=== PATIENT | female | born 1975 ===

== ENCOUNTER → 2019-01-09 22:00 | Outpatient (REF) | payer OTHER, SELFPAY ==
[2019-01-09 23:34] LABS: Add Manual Diff / Slide Review NO; Basophils Absolute Auto 0 /uL (0-100); Basophils Percent Auto 0.9 % (0-2); Eosinophils Absolute Auto 200 /uL (0-450); Eosinophils Percent Auto 3.3 % (2-4); Hematocrit 38.9 % (36-46); Hemoglobin 12.8 g/dL (12.0-16.0); Lymphocytes Absolute Auto 1700 /uL (1100-4500); Lymphocytes Percent Auto 33.2 % (25-40); Mean Corpuscular HGB Conc 32.8 % (30-36); Mean Corpuscular Hemoglobin 28.9 PG (26-34); Monocytes Absolute Auto 400 /uL (0-900); Monocytes Percent Auto 8.7 % (3-14); Neutrophils Absolute Auto 2700 /uL (1500-7000); Neutrophils Percent Auto 53.9 % (50-75); Platelet Count 252 X10^3/uL (150-400); Red Blood Cell Count 4.42 X10^6/uL (4.0-5.2); Red Cell Distribution Width 13.3 % (11.6-14.8)
[2019-01-10 00:15] LABS: Alanine Aminotransferase 27 IU/L (9-52); Albumin 4.5 g/dL (3.5-5.0); Albumin Globulin Ratio 1.6 (1.0-2.8); Alkaline Phosphatase 58 U/L (38-126); Aspartate Aminotransferase 22 IU/L (14-36); BUN Creatinine Ratio 21.7 (6-22); Bilirubin Total 1.6 mg/dL (0.2-1.3); Blood Urea Nitrogen 13 mg/dL (7-17); Calcium 9.4 mg/dL (8.4-10.2); Carbon Dioxide 26 mmol/L (22-32); Chloride 103 mmol/L (98-107); Estimated Glomerular Filt Rate > 60.0 mL/min (>60); Ferritin 56.4 ng/mL (6.27-137); Globulin 2.9 g/dL (1.7-4.1); Glucose 83 mg/dL (70-100); HEMOLYSIS < 15 (0-50); Potassium 4.4 mmol/L (3.4-5.1); Sodium 138 mmol/L (137-145); Total Protein 7.4 g/dL (6.3-8.2)
[2019-01-10 00:31] LABS: Vitamin D 25 Hydroxy (D3) 26.7 ng/mL (30.0-100.0)
[2019-01-10 06:35] LABS: Free T3, Triiodothyronine Free 3.67 pg/mL (2.77-5.27); Free T4, Direct Thyroxine 1.16 ng/dL (0.78-2.19)
[2019-01-10 06:48] LABS: Thyroid Stimulating Hormone 1.35 uIU/mL (0.47-4.68)
[2019-01-13 14:21] LABS: Homocysteine 11.1 umol/L (< 10.4)
[2019-01-14 15:30] LABS: Triiodothyronine T3 Reverse 17 ng/dL (8-25)
== END ==
LOC: LAB 22:00
PROVIDERS: Visit Provider Acupuncturist
DX: R53.83 Other fatigue (principal); G47.9 Sleep disorder, unspecified
CPT/HCPCS: 36415; 80053; 82306; 82728; 83090; 84439; 84443; 84481; 84482; 85025